=== PATIENT | male | born 1950 | race Caucasian/White ===

== ENCOUNTER → 2016-04-26 | Outpatient (CLI) | payer OTHER, MEDICARE ==
[~2016-04-26] MED LIST: ASPEC325 PO; ATEN-171 PO; BNC/20125 PO; HYDR-5688 PO; MELO15TA3 PO; SIMV20TA5 PO; TAMS0.4C38 PO; TEST1INJ2 INJ
[2016-04-26 14:32] LABS: BASO % 0.6 %; BASO ABS # 0.05 K/uL (0-0.2); COMPLETE YES; EOS % 1.6 %; HEMATOCRIT 48.6 % (42-52); IG% 0.7 %; LYMPH % 22.5 %; LYMPH ABS # 1.82 K/uL (1.2-3.4); MEAN CELL VOLUME 89.7 fL (80-100); MEAN CORPUSCULAR HEMOGLOBIN 29.2 pg (25-34); MEAN CORPUSCULAR HGB CONC 32.5 g/dl (32-36); MEAN PLATELET VOLUME 10.5 fL (7.4-10.4); MONO % 4.7 %; NEUT % 69.9 %; PLATELET COUNT 239 K/uL (130-400); RED BLOOD COUNT 5.42 M/uL (4.7-6.1); WHITE BLOOD COUNT 8.08 K/uL (4.8-10.8)
[2016-04-26 16:39] LABS: ALT/SGPT 27 U/L (12-78); AST/SGOT 14 U/L (15-37); BLOOD UREA NITROGEN 22 mg/dl (7-18); BUN/CREATININE RATIO 14.4 (10-20); CALCIUM 8.8 mg/dl (8.5-10.1); CARBON DIOXIDE 28 mmol/L (21-32); CHLORIDE 103 mmol/L (98-107); GLUCOSE 273 mg/dl (70-99); POTASSIUM 4.6 mmol/L (3.5-5.1); SODIUM 140 mmol/L (136-145)
[2016-04-26 16:42] LABS: ALB/GLOB RATIO 0.9 (0.9-2); ALKALINE PHOSPHATASE 72 U/L (45-117); CHOLESTEROL 209 mg/dl (0-200); HDL CHOLESTEROL 30 mg/dl; TRIGLYCERIDES 481 mg/dl (0-150)
[2016-04-27 06:32] LABS: ESTIMATED AVERAGE GLUCOSE 189 mg/dl; HA1C FLAG Normal (Normal)
== END | disposition home or self-care (01) ==
LOC: C.LABSPEC 13:25
PROVIDERS: ATTEND Family Medicine
DX: E78.2 Mixed hyperlipidemia (principal); E11.9 Type 2 diabetes mellitus without complications

== ENCOUNTER → 2016-07-19 | Outpatient (CLI) | payer OTHER, MEDICARE ==
[2016-07-19 18:23] LABS: BASO % 0.5 %; BASO ABS # 0.04 K/uL (0-0.2); COMPLETE YES; HEMATOCRIT 50.7 % (42-52); IG% 0.9 %; LYMPH % 21.4 %; LYMPH ABS # 1.84 K/uL (1.2-3.4); MEAN CELL VOLUME 92.2 fL (80-100); MEAN CORPUSCULAR HGB CONC 32.5 g/dl (32-36); MEAN PLATELET VOLUME 10.7 fL (7.4-10.4); MONO % 7.4 %; NEUT % 68.8 %; PLATELET COUNT 242 K/uL (130-400)
[2016-07-19 19:24] LABS: ALT/SGPT 29 U/L (12-78); AST/SGOT 20 U/L (15-37); BLOOD UREA NITROGEN 25 mg/dl (7-18); BUN/CREATININE RATIO 19.4 (10-20); CALCIUM 9.7 mg/dl (8.5-10.1); CARBON DIOXIDE 31 mmol/L (21-32); CHLORIDE 101 mmol/L (98-107); GLUCOSE 307 mg/dl (70-99); POTASSIUM 5.6 mmol/L (3.5-5.1); SODIUM 137 mmol/L (136-145)
[2016-07-19 19:35] LABS: ALB/GLOB RATIO 0.9 (0.9-2); ALKALINE PHOSPHATASE 93 U/L (45-117); CHOLESTEROL 196 mg/dl (0-200); CHOLESTEROL/HDL RATIO 5.6; HDL CHOLESTEROL 35 mg/dl; TRIGLYCERIDES 776 mg/dl (0-150)
[2016-07-19 19:43] LABS: BETA-HYDROXYBUTYRATE 1.73 mg/dL (0.2-2.81)
[2016-07-20 07:44] LABS: ESTIMATED AVERAGE GLUCOSE 217 mg/dl; HA1C FLAG Normal (Normal)
== END | disposition home or self-care (01) ==
LOC: C.LABSPEC 17:52
PROVIDERS: ATTEND Family Medicine
DX: E11.9 Type 2 diabetes mellitus without complications (principal); E78.2 Mixed hyperlipidemia; I10 Essential (primary) hypertension

== ENCOUNTER → 2016-08-31 | Outpatient (CLI) | payer OTHER, MEDICARE ==
--- NOTE | 2016-08-31 12:12 | DIAGNOSTIC IMAGING REPORT ---
LUMBAR SPINE MRI HISTORY: Low back pain. TECHNIQUE: Multiplanar multisequence MRI of the lumbar spine was performed without the use of contrast. COMPARISON: None. FINDINGS: For the purpose of the report the L5-S1 disc space will be located on axial image 27 of 30. Straightening of the lumbar spine. There is 4 mm of anterolisthesis of L5 on S1. There appears to be bilateral L5 spondylolysis. Severe disc space narrowing at L5-S1. Moderate disc space narrowing at L4-L5 and L3-L4. Severe disc space narrowing at L2-L3. The conus terminates at the L1 level. Anterior endplate osteophytes seen throughout the lumbar spine. No fractures within the lumbar spine. There is a 3.3 cm T2 hyperintense lesion within the left kidney. This favors a cyst. Distal abdominal aorta is top normal in diameter measuring up to 2.9 cm. L1-L2: No significant central canal or neural foraminal narrowing. L2-L3: Small broad-based posterior disc bulge without significant central canal or neural foraminal narrowing. L3-L4: Tiny broad-based posterior disc bulge with a tiny focal central disc protrusion. No significant central canal. Mild bilateral neural foraminal narrowing. L4-L5: Tiny broad-based posterior disc bulge without significant central canal narrowing. There is mild bilateral neural foraminal narrowing due to the facet hypertrophy. L5-S1: Small broad-based posterior disc bulge without significant central canal narrowing. Moderate left and severe right neural foraminal narrowing primarily due to the spondylolisthesis. IMPRESSION: 1. Bilateral L5 spondylolysis with associated grade I anterolisthesis. This results in severe right and moderate left neural foraminal narrowing. 2. No significant central canal narrowing. 3. Additional degenerative changes as described above. 4. Straightening of the lumbar spine. Electronically signed by: Myles Fischer M.D. 08/31/2016 12:10 PM Dictated Date/Time: 08/31/2016 12:04 PM
== END | disposition home or self-care (01) ==
LOC: C.MRIBC 10:50
PROVIDERS: ATTEND Pain Medicine Interventional Pain Medicine
DX: M48.06 Spinal stenosis, lumbar region (principal); M47.816 Spondylosis without myelopathy or radiculopathy, lumbar region

== ENCOUNTER → 2017-01-18 | Outpatient (CLI) | payer OTHER, MEDICARE ==
[2017-01-18 18:09] LABS: HEMATOCRIT 52.9 % (42-52); MEAN CELL VOLUME 91.8 fL (80-100); MEAN CORPUSCULAR HEMOGLOBIN 29.5 pg (25-34); MEAN CORPUSCULAR HGB CONC 32.1 g/dl (32-36); MEAN PLATELET VOLUME 10.9 fL (7.4-10.4); PLATELET COUNT 211 K/uL (130-400); RED BLOOD COUNT 5.76 M/uL (4.7-6.1); WHITE BLOOD COUNT 9.47 K/uL (4.8-10.8)
[2017-01-18 18:21] LABS: ALT/SGPT 26 U/L (12-78); AST/SGOT 13 U/L (15-37); BLOOD UREA NITROGEN 31 mg/dl (7-18); BUN/CREATININE RATIO 25.2 (10-20); CALCIUM 9.1 mg/dl (8.5-10.1); CARBON DIOXIDE 29 mmol/L (21-32); CHLORIDE 101 mmol/L (98-107); CREATININE 1.25 mg/dl (0.60-1.40); GLUCOSE 152 mg/dl (70-99); POTASSIUM 5.1 mmol/L (3.5-5.1); SODIUM 135 mmol/L (136-145)
[2017-01-18 18:25] LABS: ALB/GLOB RATIO 0.9 (0.9-2); ALKALINE PHOSPHATASE 72 U/L (45-117); CHOLESTEROL 168 mg/dl (0-200); CHOLESTEROL/HDL RATIO 4.5; HDL CHOLESTEROL 37 mg/dl; LDL CHOLESTEROL CALCULATED 57 mg/dl; TRIGLYCERIDES 370 mg/dl (0-150); VERY LOW DENSITY LIPOPROT CALC 74 mg/dl
[2017-01-18 18:33] LABS: LARGE PLATELETS 1+; MDIFF REQUEST Y
[2017-01-19 06:22] LABS: ESTIMATED AVERAGE GLUCOSE 194 mg/dl; HA1C FLAG Normal (Normal)
== END | disposition home or self-care (01) ==
LOC: C.LABSPEC 17:46
PROVIDERS: ATTEND Family Medicine
DX: R31.9 Hematuria, unspecified (principal); E11.9 Type 2 diabetes mellitus without complications; I12.9 Hypertensive chronic kidney disease with stage 1 through stage 4 chronic kidney disease, or unspecified chronic kidney disease; N18.3 Chronic kidney disease, stage 3 (moderate); E78.2 Mixed hyperlipidemia; Z12.5 Encounter for screening for malignant neoplasm of prostate

== ENCOUNTER → 2017-07-14 | Outpatient (CLI) | payer OTHER, MEDICARE ==
[2017-07-14 18:17] LABS: BASO % 0.4 %; BASO ABS # 0.03 K/uL (0-0.2); EOS % 1.3 %; HEMOGLOBIN 17.4 g/dL (14.0-18.0); IG# 0.08 K/uL (0.00-0.02); MEAN CELL VOLUME 88.6 fL (80-100); MEAN CORPUSCULAR HEMOGLOBIN 29.1 pg (25-34); MEAN CORPUSCULAR HGB CONC 32.8 g/dl (32-36); MEAN PLATELET VOLUME 10.3 fL (7.4-10.4); MONO % 6.2 %; MONO ABS # 0.49 K/uL (0.11-0.59); NEUT % 72.1 %; NEUT ABS # 5.69 K/uL (1.4-6.5); PLATELET COUNT 192 K/uL (130-400); RED CELL DISTRIBUTION WIDTH CV 14.6 % (11.5-14.5); RED CELL DISTRIBUTION WIDTH SD 46.6 fL (36.4-46.3); WHITE BLOOD COUNT 7.89 K/uL (4.8-10.8)
[2017-07-14 19:09] LABS: ALBUMIN 3.5 gm/dl (3.4-5.0); ALT/SGPT 29 U/L (12-78); BLOOD UREA NITROGEN 27 mg/dl (7-18); CALCIUM 8.6 mg/dl (8.5-10.1); CARBON DIOXIDE 30 mmol/L (21-32); CHOLESTEROL 189 mg/dl (0-200); CREATININE 1.44 mg/dl (0.60-1.40); GLUCOSE 305 mg/dl (70-99); POTASSIUM 4.7 mmol/L (3.5-5.1); SODIUM 136 mmol/L (136-145)
[2017-07-14 19:12] LABS: ALKALINE PHOSPHATASE 78 U/L (45-117); AST/SGOT 21 U/L (15-37); TOTAL PROTEIN 7.4 gm/dl (6.4-8.2)
[2017-07-15 07:02] LABS: HEMOGLOBIN A1C 9.8 % (4.5-5.6)
== END | disposition home or self-care (01) ==
LOC: C.LABSPEC 17:51
PROVIDERS: ATTEND Family Medicine
DX: E11.9 Type 2 diabetes mellitus without complications (principal); N18.3 Chronic kidney disease, stage 3 (moderate); E78.2 Mixed hyperlipidemia

== ENCOUNTER → 2017-07-14 | Outpatient (CLI) | payer OTHER, MEDICARE | END | disposition home or self-care (01) | LOC: C.LABSPEC 12:17 | PROVIDERS: ATTEND Family Medicine | DX: E11.9 Type 2 diabetes mellitus without complications (principal) ==

== ENCOUNTER 2018-03-03 06:24 | Inpatient (IN) ==
--- NOTE | 2018-03-01 12:19 | Anesthesiology Consultation ---
Date of Service March 01, 2018 Assessment & Plan (1) Encounter for pre-operative examination: Chart Review Chart Review: Acceptable Risk for Surgery and Patient NOT seen in Pre Admission Testing History Surgery Operation Date: 03/03/18 07:30 Proposed Procedures p Transesophageal Echocardiogram with Anesthesia - Caleb Cortés MD Height/Weight Height: 6 ft 1 in Weight: 148.325 kg Allergies Allergy/AdvReac Type Severity Reaction Status Date / Time amoxicillin Allergy Mild HIVES Verified 03/01/18 07:57 Penicillins AdvReac Unknown HYSTERIA Verified 03/01/18 07:57 Medications Home Medications Medication Instructions Recorded Confirmed Last Taken dulaglutide [Trulicity] 1 dose SUBCUT .Tuesday03/01/18 03/01/18 Unknown fenofibrate 160 mg PO QAM 03/01/18 03/01/18 Unknown glipizide 5 mg PO BID 03/01/18 03/01/18 Unknown meloxicam 7.5 mg PO QAM 03/01/18 03/01/18 Unknown olmesartan 40 mg PO QAM 03/01/18 03/01/18 Unknown simvastatin 40 mg PO QAM 03/01/18 03/01/18 Unknown tamsulosin 0.4 mg PO QAM 03/01/18 03/01/18 Unknown Past Medical History Medical History Atypical chest pain Does not appear to be consistent with ischemic origin...no ischemic evaluation was recommended at this time per cardio 02/21 GIL (dyspnea on exertion) 'could be 2/2 pericardial effusion' per cardio 02/21 Diabetes mellitus, type 2 Hyperlipidemia Hypertension Morbid obesity Osteoarthritis Pericardial effusion Tobacco abuse Past Surgical History Surgical History History of arthroscopy RIGHT KNEE History of bowel resection r/t polyp History of colonoscopy History of open reduction and internal fixation (ORIF) procedure ORIF LEFT LEG History of total hip arthroplasty LEFT Hx of tonsillectomy Social History Smoking Status: Current every day smoker tobacco type: cigarettes Smoking cigarettes per day: 1PPD Do You Dip or Chew Tobacco: No Hx Alcohol Use: Yes Alcohol type: beer alcohol intake frequency: holidays/special occasions only Hx Substance Use: No substance use type: does not use Testing Electrocardiogram Date: 02/21/18 Findings: + ST @ (108) Occasional PVCs. Low QRS voltage in precordial leads. Nonspecific ST and T wave abnormality. *unconfirmed EKG but reviewed in cardio office note 02/21. Echocardiogram Date: 02/22/18 EF: 60-65% Grossly normal left ventricular size with normal systolic function. No visualized regional wall motion abnormality's, however cannot exclude wall motion abnormalities given poor image quality. There is a small pericardial effusion suggested anteriorly, however the majority of the pericardial space is not visualized. Cannot exclude larger component. Cannot exclude valvular abnormalities. Technically difficult study. Laboratory Results Laboratory Tests 01/12/18 01/12/18 01/12/18 10:05 10:05 10:05 WBC 9.32 Hgb 17.4 Hct 52.0 Plt Count 199 Sodium 140 Potassium 4.7 Chloride 105 Carbon Dioxide 29 BUN 20 H Creatinine 1.01 Glucose 146 H Hemoglobin A1c 8.7 H
[2018-03-03] MEDS ORDERED: PROPOFOL IV EMULSION 10 MG/ML 20 ML VIAL IV ONE (07:05)
--- NOTE | 2018-03-03 07:26 | History & Physical Bridge Note ---
Date of Service March 03, 2018 History & Physical Bridge Note I have examined the patient, reviewed the History & Physical and in the interval since the performance of the History & Physical I have noted the following changes of clinical significance: no changes noted
--- NOTE | 2018-03-03 08:07 | History & Physical Report ---
Date of Service March 03, 2018 Assessment & Plan (1) Shortness of breath: Initially thought to be due to pericardial effusion, but I think it is more likely to be related to undiagnosed COPD given his long-standing smoking. No wheezing on exam, no cough. Low suspicion for acute exacerbation. D-dimer negative on 03/03, making PE unlikely. - Home Breo (not actually taking it at home) - DuoNebs standing and PRN - 2-step for home O2 - Discussed smoking cessation (2) Pericardial effusion: Has been getting worked-up for this for several months. Was here for BETH, but could not obtain due to poor oxygenation. However, TTE on 03/03 show mild pericardial effusion without any sign of tamponade. - No further inpatient work-up (3) Diastolic CHF: Echo obtained showing preserved EF of 55-60% with grade 1 diastolic dysfucntion, pt was unable to do BETH due gag reflex. - Follow up with cardiology as outpatient. - Continue ARB (4) Benign essential HTN: - Well controlled, continue olmesartan 40 mg daily (5) HLD (hyperlipidemia): - Cont simvastatin 40 mg daily (6) DM II (diabetes mellitus, type II), controlled: - ISS with accuchecks - Hold glipized 5 mg BID, next dose if Trulicity would be due 03/04/18, asked pt to bring in from home if no plans for discharge tomorrow. - Last A1C= 8.7 on 01/12/18 - family life educator consult placed (7) CKD stage 3 due to type 1 diabetes mellitus: - hold glipizide for now, other nephrotoxins - Follow Cr. with am labs (8) Morbid obesity with BMI of 40.0-44.9, adult: - Diet and exercise encouraged - family life educator consult ordered for diet recommendations. (9) Tobacco abuse: - Counselled on cessation, will need reinforcement prior to discharge - Offered nicotine patch while inpatient, pt has stopped smoking in the past on his own. Pt was encouraged to do so again. Consider offering nicotine patch Rx or chantix at time of discharge. (10) Spinal stenosis: - Can continue meloxicam for back pain for now. Pt working with Dr. Ham as an outpatient, back pain also limits the pt exercise tolerance. (11) DVT prophylaxis: - teds, scds, heparin subq History of Present Illness Primary Care Provider: Supa Baker This is a 67 yo M with PMHx of HTN, HLD, Morbid obesity with BMI of 43.1, chronic tobacco abuse, DM II, CKD stage III, spinal stenosis, possible COPD, likely obesity hypoventilation syndrome, who has been complaining of progressive dyspnea on exertion for several months along with intermittent chest pain. He was in the hospital per cardiology this morning for a BETH to evaluate a pericardial effusion. This was initially found in July 2017, and then was reassessed in Jan 2018 where effusions was increased in size. Pt was also complaining of chest pain intermittently, which led to further cardiac workup. Dr. Buenrostro attempted to obtain a bedside echo as an outpatient on , however, due to the patients body habitus this was a difficult study to interpret. Pt was then found to be hypoxic upon initiation of scheduled BETH this morning, and BETH was not obtained. A TTE was ordered instead which showed grade 1 diastolic dysfunction. Allergies Allergy/AdvReac Type Severity Reaction Status Date / Time amoxicillin Allergy Mild HIVES Verified 03/01/18 07:57 Penicillins AdvReac Unknown HYSTERIA Verified 03/01/18 07:57 Home Medications Home Medications Medication Instructions Recorded Confirmed Type dulaglutide [Trulicity] 1 dose SUBCUT .Tuesday03/01/18 03/01/18 History fenofibrate 160 mg PO QAM 03/01/18 03/01/18 History glipizide 5 mg PO BID 03/01/18 03/01/18 History meloxicam 7.5 mg PO QAM 03/01/18 03/01/18 History olmesartan 40 mg PO QAM 03/01/18 03/01/18 History simvastatin 40 mg PO QAM 03/01/18 03/01/18 History tamsulosin 0.4 mg PO QAM 03/01/18 03/01/18 History albuterol sulfate [Ventolin HFA] 2 puff INHALATION Q6H PRN 03/03/18 03/03/18 History fluticasone-vilanterol [Breo 1 inh INHALATION DAILY 03/03/18 03/03/18 History Ellipta] glipizide [Glucotrol XL] 5 mg PO BID 03/03/18 03/03/18 History olmesartan [Benicar] 40 mg PO DAILY 03/03/18 03/03/18 History Past Med/Surg History Medical History Diastolic CHF Spinal stenosis Pericardial effusion Tobacco abuse Morbid obesity with BMI of 40.0-44.9, adult DM II (diabetes mellitus, type II), controlled CKD stage 3 due to type 1 diabetes mellitus HLD (hyperlipidemia) Benign essential HTN Atypical chest pain Does not appear to be consistent with ischemic origin...no ischemic evaluation was recommended at this time per cardio 02/21 GIL (dyspnea on exertion) 'could be 2/2 pericardial effusion' per cardio 02/21 Diabetes mellitus, type 2 Hyperlipidemia Hypertension Morbid obesity Osteoarthritis Pericardial effusion Tobacco abuse Surgical History History of arthroscopy RIGHT KNEE History of bowel resection r/t polyp History of colonoscopy History of open reduction and internal fixation (ORIF) procedure ORIF LEFT LEG History of total hip arthroplasty LEFT Hx of tonsillectomy Family History Other COPD (chronic obstructive pulmonary disease) HTN (hypertension) Prostate cancer Social History Current Living Situation: Alone Other Information That Helps Us Care for You: No Feels Safe at Home: Yes Safety Concerns: Feels Safe At This Time Smoking Status: Current every day smoker Tobacco Type: cigarettes Cigarettes per Day: 20 Do You Dip or Chew Tobacco: No Second Hand Exposure: No Tobacco Cessation Education Requested by Patient: No Hx Alcohol Use: Yes Alcohol type: beer Alcohol Intake Frequency: other Hx Substance Use: No Beliefs That Will Affect Care: None Preferred Language: Thai Communication Ability: Effective Ambulatory Care Nurse Required: No Review of Systems Constitutional: + weight gain and + increased appetite; no fever, no chills, no sweats and no fatigue Eyes: no diplopia and no worsening vision Ear, Nose, Mouth, Throat: no dizziness, no nasal discharge, no facial pain and no sore throat Respiratory: + cough (minimal clear sputum); no chest congestion, no dyspnea, no hemoptysis, no snoring and no wheezing Cardiovascular: + orthopnea; no chest pain, no chest pain with activity, no radiating jaw, neck or arm pain, no dyspnea at rest, no paroxysmal nocturnal dyspnea, no palpitations, no lightheadedness and no syncope Gastrointestinal: no nausea, no vomiting and no constipation no diarrhea Genitourinary (Male): no dysuria, no urinary frequency, no urinary hesitancy and no hematuria Musculoskeletal: + back pain (chronic); no joint pain, no swelling and no muscle weakness Integumentary: no rash, no lesions and no wounds Neurologic: no gait abnormality, no falls, no numbness, no dizziness and no syncope Psychiatric: no depression and no anxiety Endocrine: no fatigue Physical Exam 2 Vital Signs (Past 24 Hours): Last Vital Signs Temp 36.6 C 03/03/18 07:07 Pulse 65 03/03/18 07:07 Resp 16 03/03/18 07:07 BP 149/85 H 03/03/18 07:07 Pulse Ox 90 03/03/18 07:07 Physical Exam: General: awake, alert, no apparent distress, morbidly obese Head: Normocephalic, atraumatic ENT: PERRL, EOMI, no pharyngeal exudate, mucous membranes moist Chest: Clear to auscultation, diminished breath sounds at on room air, no adventitious breath sounds Cardiac: Regular rate and rhythm, no murmur, no JVD, normal peripheral pulses, delayed capillary refill, 3 sec Abdominal: NABS x 4 quadrants, soft, nontender to palpation, no rebound, guarding or tenderness Extremities: Normal inspection, no peripheral edema or erythema, calfs nontender to palpation Psych: Normal mood and affect Neuro: AAO x 3, strength intact bilaterally and related 5/5, no motor deficits, speech is clear, no peripheral sensory deficits
[2018-03-03] MEDS ORDERED: DEXTROSE 50% 50 ML SYRINGE IV PRN (10:07)
[2018-03-03] MEDS ORDERED: GLUCOSE 10 TABS/TUBE PO PRN (10:07)
[2018-03-03] MEDS ORDERED: ONDANSETRON INJ 2 MG/ML 2 ML VIAL IV PRN (10:07)
[2018-03-03] MEDS ORDERED: GLUCOSE 40% GEL 15 GM TUBE PO PRN (10:07)
[2018-03-03] MEDS ORDERED: ALBUTEROL HFA 8 GM INHALER INH PRN (10:07)
[2018-03-03] MEDS ORDERED: GLUCAGON FOR INJ 1 MG VIAL SQ PRN (10:07)
[2018-03-03] MEDS ORDERED: CARBOHYDRATES FOR HYPOGLYCEMIA PO PRN (10:07)
[2018-03-03 11:30] LABS: Prothrombin Time 10.2 Seconds (9.0-12.0)
[2018-03-03 12:32] LABS: Hematocrit (blood only) 57.3 % (42-52); Hemoglobin 18.2 g/dL (14.0-18.0); Mean Corpuscular Volume 91.7 fL (80-100); Mean Platelet Volume 10.7 fL (7.4-10.4); Platelet Count 180 K/uL (130-400); RDW Coefficient of Variation 14.3 % (11.5-14.5); RDW Standard Deviation 47.9 fL (36.4-46.3); Red Blood Count 6.25 M/uL (4.7-6.1); White Blood Count 10.17 K/uL (4.8-10.8)
[2018-03-03 12:44] LABS: BUN Creatinine Ratio 17.7 (10-20); Calcium 9.3 mg/dl (8.5-10.1); Creatinine Clr Calc Pharmacy 85.3 ml/min; Est GFR (African American) 68.3; Est GFR (Non-African American) 58.9; Potassium 4.5 mmol/L (3.5-5.1)
[2018-03-03] MEDS: MELOXICAM 7.5 MG TAB PO SCH (13:22)
[2018-03-03] MEDS: TAMSULOSIN HCL 0.4 MG CAP PO SCH (13:22)
[2018-03-03] MEDS: OLMESARTAN MEDOXOMIL 40 MG TAB PO SCH (13:22)
[2018-03-03] MEDS: NICOTINE 21 MG/24 HR TDSY TD SCH (13:26)
[2018-03-03] MEDS: INSULIN ASPART 100 UNITS/ML 3 ML PEN SC SCH ×3 (13:28→20:33)
[2018-03-03] MEDS: HEPARIN SOD 5,000 UNIT/0.5 ML VIAL SQ SCH ×2 (13:34→19:59)
[2018-03-03] MEDS ORDERED: ALBUT/IPRATROP 3MG/0.5MG NEB 3 ML VIAL NEB PRN (13:47)
[2018-03-03 14:20] LABS: Mean Corpuscular Hgb Conc 31.8 g/dL (32-36)
[2018-03-03 14:21] LABS: ALC (manual) 2.54 K/uL (1.2-3.4); Lymphocytes # (manual) 2.54 K/uL (1.2-3.4); Monocytes # (manual) 0.61 K/uL (0.11-0.59)
[2018-03-03] MEDS: ALBUT/IPRATROP 3MG/0.5MG NEB 3 ML VIAL NEB SCH ×2 (15:29→18:57)
[2018-03-03] MEDS: TRULICITY: ORDER AWAITING ACTION SCH (16:27)
[2018-03-03] MEDS: FENOFIBRATE: ORDER AWAITING ACTION SCH (16:27)
[2018-03-03] MEDS: BREO ELLIPTA: ORDER AWAITING ACTION SCH (16:27)
[2018-03-03] MEDS ORDERED: SIMVASTATIN 40 MG TAB PO SCH (21:00)
[2018-03-04] MEDS: BREO ELLIPTA: ORDER AWAITING ACTION SCH (01:40)
[2018-03-04] MEDS: TRULICITY: ORDER AWAITING ACTION SCH (01:41)
[2018-03-04] MEDS: FENOFIBRATE: ORDER AWAITING ACTION SCH (01:41)
[2018-03-04] MEDS: HEPARIN SOD 5,000 UNIT/0.5 ML VIAL SQ SCH (05:17)
[2018-03-04] MEDS: ALBUT/IPRATROP 3MG/0.5MG NEB 3 ML VIAL NEB SCH ×2 (07:12→11:36)
[2018-03-04 07:24] LABS: Hematocrit (blood only) 53.7 % (42-52); Hemoglobin 16.9 g/dL (14.0-18.0); Mean Corpuscular Hgb Conc 31.5 g/dL (32-36); Mean Corpuscular Volume 92.3 fL (80-100); Mean Platelet Volume 10.5 fL (7.4-10.4); Platelet Count 191 K/uL (130-400); RDW Coefficient of Variation 14.3 % (11.5-14.5); RDW Standard Deviation 48.1 fL (36.4-46.3); Red Blood Count 5.82 M/uL (4.7-6.1); White Blood Count 9.53 K/uL (4.8-10.8)
[2018-03-04] MEDS: INSULIN ASPART 100 UNITS/ML 3 ML PEN SC SCH (07:52)
[2018-03-04] MEDS: TAMSULOSIN HCL 0.4 MG CAP PO SCH (07:53)
[2018-03-04] MEDS: OLMESARTAN MEDOXOMIL 40 MG TAB PO SCH (07:53)
[2018-03-04] MEDS: MELOXICAM 7.5 MG TAB PO SCH (07:53)
[2018-03-04] MEDS: NICOTINE 21 MG/24 HR TDSY TD SCH (07:53)
[2018-03-04 08:03] LABS: Albumin Globulin Ratio 0.8 (0.9-2); Albumin Level 3.2 gm/dl (3.4-5.0); BUN Creatinine Ratio 16.4 (10-20); Bilirubin,Total 0.3 mg/dl (0.1-1); Calcium 8.6 mg/dl (8.5-10.1); Creatinine Clr Calc Pharmacy 76.6 ml/min; Est GFR (African American) 60.6; Est GFR (Non-African American) 52.3; Globulin 3.9 gm/dl (2.5-4.0); Potassium 4.3 mmol/L (3.5-5.1); Total Protein 7.1 gm/dl (6.4-8.2)
--- NOTE | 2018-03-04 16:08 | Discharge Summary ---
Date of Service March 04, 2018 Admission HPI Per Admitting Provider This is a 67 yo M with PMHx of HTN, HLD, Morbid obesity with BMI of 43.1, chronic tobacco abuse, DM II, CKD stage III, spinal stenosis, possible COPD, likely obesity hypoventilation syndrome, who has been complaining of progressive dyspnea on exertion for several months along with intermittent chest pain. He was in the hospital per cardiology this morning for a BETH to evaluate a pericardial effusion. This was initially found in July 2017, and then was reassessed in Jan 2018 where effusions was increased in size. Pt was also complaining of chest pain intermittently, which led to further cardiac workup. Dr. Buenrostro attempted to obtain a bedside echo as an outpatient on , however, due to the patients body habitus this was a difficult study to interpret. Pt was then found to be hypoxic upon initiation of scheduled BETH this morning, and BETH was not obtained. A TTE was ordered instead which showed grade 1 diastolic dysfunction. Principal Diagnosis Probably COPD Discharge Exam Constitutional well developed, well nourished and + morbidly obese Eyes PERRL, conjunctivae normal, anicteric sclerae ENMT Mouth: + dentures Neck + short neck, + thick neck and + facial hair Respiratory normal respiratory effort and + tachypneic Auscultation: lungs clear to auscultation bilaterally Cardiovascular Rate/Rhythm: regular rate and regular rhythm Heart Sounds: no murmur Gastrointestinal (Abdomen) Inspection/Auscultation: abdomen normal to inspection; abdomen not distended Skin no rashes, warm and dry Discharge Data Allergies Allergy/AdvReac Type Severity Reaction Status Date / Time amoxicillin Allergy Mild HIVES Verified 03/01/18 07:57 Penicillins AdvReac Unknown HYSTERIA Verified 03/01/18 07:57 Procedures Performed Operation Date: 03/03/18 07:30 <No data on this case meets the specified criteria> Hospital Course (1) Shortness of breath: Initially thought to be due to pericardial effusion, but I think it is more likely to be related to undiagnosed COPD given his long-standing smoking. No wheezing on exam, no cough. Low suspicion for acute exacerbation. D-dimer negative on 03/03, making PE unlikely. - Qualified for home O2 with O2 sat of 88% with exertion; however, patient declined. Re-prescribed his home Breo and albuterol with instructions on how and when to take each. Strongly counseled cessation of smoking as the only life- prolonging COPD treatment. (2) Pericardial effusion: Has been getting worked-up for this for several months. Was here for BETH, but could not obtain due to poor oxygenation. However, TTE on 03/03 show mild pericardial effusion without any sign of tamponade. - No further inpatient work-up (3) Diastolic CHF: Echo obtained showing preserved EF of 55-60% with grade 1 diastolic dysfucntion, pt was unable to do BETH due gag reflex. - Follow up with cardiology as outpatient. - Continue ARB (4) Benign essential HTN: - Well-controlled, continue olmesartan 40 mg daily (5) HLD (hyperlipidemia): - Cont simvastatin 40 mg daily (6) DM II (diabetes mellitus, type II), controlled: - ISS with accuchecks while inpatient. Seen by diabetes counselor. - Continue home meds on discharge. (7) CKD stage 3 due to type 1 diabetes mellitus: Stable while inpatient (8) Morbid obesity with BMI of 40.0-44.9, adult: - Diet and exercise encouraged - jewelry bench molder consult ordered for diet recommendations. (9) Tobacco abuse: - Counselled on cessation. - Discharged with nicotine patch prescription (10) Spinal stenosis: - Can continue meloxicam for back pain for now. Pt working with Dr. Ham as an outpatient, back pain also limits the pt exercise tolerance. Total Time Total Time Spent Total Time Spent (In Minutes): 40 Total Time Includes: Examination of the Patient, Discharge Planning and Medication Reconciliation Discharge Plan Discharge Items Patient Disposition: Home - Self-Care Reason For Visit: Pericardial Effusion, HYPOXIA ON RA Discharge Diagnosis: Probably COPD, but not an exacerbation Condition: Good Discharge Goals: Decrease discomfort, Diagnostic testing and Improve function Activity: Resume your previous activity Driving/Machine Use: No limitations Non-emergency contact: Primary Care Provider Call non-emergency contact if: your symptoms worsen and your temperature is above 100.5 Follow-up/Referrals: Kevon Acosta DO [Physician] - (Please call the office and ask for an appointment with a nursing unit coordinator if our nurse coordinator does not call you on Tuesday.) Supa Baker DO [Primary Care Provider] - Diet: Carb Consistent or DM2 Addtl Provider Instructions: Gabriella Kleinfelter, You were admitted to the hospital for low oxygen levels when you came in for an outpatient procedure. You have been having worsening shortness of breath for about 2 months with it getting worse in the last few weeks. You do not have much of a cough, and aren't producing any mucus, so we do not think you have a pneumonia. I suspect you have COPD which is caused by long-term exposure to smoke. Please try to quit smoking as it is the best thing you can do for your lungs and will help keep your COPD from getting worse. We are going to schedule you to see a lung doctor for further testing. Please start taking your inhalers on a regular basis to help improve your shortness of breath. While here, you technically qualified for oxygen. Your oxygen level was 91-92% while you were resting, but went down to 88% when we walked around. However, you preferred to hold off on the oxygen for now, so please discuss this with your PCP and the lung doctor. Take the Breo inhaler 1 time every day, even if you are breathing well. It is meant to make your breathing every day a bit better. If you are feeling extra shortness of breath, take the albuterol inhaler (2 puffs) up to 4 times per day. If you are using it all several times each day, you need to talk with your PCP or lung doctor to discuss adding or changing your inhaler regimen. Please come back to the hospital with any fevers, chills, worsening cough, sputum production, or other concerning signs/symptoms. Prescriptions: New nicotine 21-14-7 mg/24 hr patch, TD daily, sequential 1 patch TD DAILY Qty: 56 RF: 0 Continue simvastatin 40 mg Tablet 40 mg PO QAM RF: 0 meloxicam 7.5 mg Tablet 7.5 mg PO QAM RF: 0 tamsulosin 0.4 mg Capsule 0.4 mg PO QAM RF: 0 glipizide 2.5 mg Tablet Extended Release 24hr 5 mg PO BID RF: 0 olmesartan 40 mg Tablet 40 mg PO QAM RF: 0 fenofibrate 160 mg Tablet 160 mg PO QAM RF: 0 dulaglutide [Trulicity] 1.5 mg/0.5 mL Pen Injector 1 dose subcut .TUESDAY RF: 0 glipizide [Glucotrol XL] 2.5 mg Tablet Extended Release 24hr 5 mg PO BID RF: 0 olmesartan [Benicar] 40 mg Tablet 40 mg PO DAILY RF: 0 albuterol sulfate [Ventolin HFA] 90 mcg/actuation Hfa Aerosol Inhaler 2 puff INHALATION Q6H PRN (Reason: Shortness Of Breath) 30 Days Qty: 1 RF: 0 fluticasone-vilanterol [Breo Ellipta] 100-25 mcg/dose Blister With Device 1 inh INHALATION DAILY 30 Days Qty: 1 RF: 0 Visit Report Forms: [facility] Portal Stand-Alone Forms: [facility] Discharge Orders: Discharge Order (Routine); Ordered 03/04/18 Ordered By: Hernan Ho Admission Data Admit Date/Time: 03/03/18 08:33 Attending Provider: Hernan Ho Admit Provider: Hernan Ho Primary Care Provider: Supa Baker Service: Medical Other Interventions: Discharge Summary Assessment (RN) Last Done: 03/04/18 10:33 DC Date/Time DO NOT enter until pt leaves facility: 03/04/18 13:05
== END 2018-03-04 13:05 | disposition home or self-care (01) | DRG 191 ==
LOC: CC 06:24 → 2S 08:33